=== PATIENT | female | born 1985 | race Caucasian/White ===

== ENCOUNTER → 2017-07-07 | Outpatient (CLI) | payer OTHER | END | disposition home or self-care (01) | LOC: C.PAPS 08:24 | PROVIDERS: ATTEND Obstetrics & Gynecology | DX: Z12.4 Encounter for screening for malignant neoplasm of cervix (principal) ==

== ENCOUNTER → 2017-07-07 | Outpatient (CLI) | payer OTHER ==
[2017-07-07 17:02] LABS: BASO % 0.1 %; BASO ABS # 0.01 K/uL (0-0.2); COMPLETE YES; EOS % 1.2 %; HEMATOCRIT 38.2 % (37-47); IG% 0.3 %; LYMPH % 17.4 %; LYMPH ABS # 1.26 K/uL (1.2-3.4); MEAN CELL VOLUME 81.3 fL (80-100); MEAN CORPUSCULAR HEMOGLOBIN 28.5 pg (25-34); MEAN CORPUSCULAR HGB CONC 35.1 g/dl (32-36); MEAN PLATELET VOLUME 10.3 fL (7.4-10.4); MONO % 5.5 %; NEUT % 75.5 %; PLATELET COUNT 179 K/uL (130-400); WHITE BLOOD COUNT 7.26 K/uL (4.8-10.8)
[2017-07-07 18:18] LABS: URINE APPEARANCE CLEAR (CLEAR); URINE BILIRUBIN NEG (NEG); URINE COLOR YELLOW; URINE NITRITE NEG (NEG); URINE SPECIFIC GRAVITY 1.023 (1.000-1.030); UROBILINOGEN NEG (NEG)
[2017-07-07 18:19] LABS: MANUAL MICROSCOPIC REQUIRED? NO; REVIEW REQ? NO
[2017-07-10 00:38] LABS: CHLAMYDIA TRACH RNA*** NOT DETECTED (NOT DETECTED); GC (NEIS GONORRHOEAE)RNA** NOT DETECTED (NOT DETECTED)
== END | disposition home or self-care (01) ==
LOC: C.LAB1850 16:10
PROVIDERS: ATTEND Obstetrics & Gynecology
DX: O99.281 Endocrine, nutritional and metabolic diseases complicating pregnancy, first trimester (principal)

== ENCOUNTER → 2017-08-04 | Outpatient (CLI) | payer OTHER ==
[2017-08-04 10:10] LABS: THYROID STIMULATING HORMONE 6.78 uIu/ml (0.300-4.500)
== END | disposition home or self-care (01) ==
LOC: C.LAB 07:04
PROVIDERS: ATTEND Family Medicine
DX: E03.9 Hypothyroidism, unspecified (principal)

== ENCOUNTER → 2017-08-27 | Outpatient (CLI) | payer OTHER ==
[2017-08-27 11:20] LABS: GTGD 50 Grams
== END | disposition home or self-care (01) ==
LOC: C.LAB1850 08:37
PROVIDERS: ATTEND Obstetrics & Gynecology
DX: Z34.02 Encounter for supervision of normal first pregnancy, second trimester (principal); Z3A.00 Weeks of gestation of pregnancy not specified

== ENCOUNTER → 2017-09-04 | Outpatient (CLI) | payer OTHER | END | disposition home or self-care (01) | LOC: C.LAB1850 07:59 | PROVIDERS: ATTEND Obstetrics & Gynecology | DX: O28.1 Abnormal biochemical finding on antenatal screening of mother (principal); Z3A.00 Weeks of gestation of pregnancy not specified ==

== ENCOUNTER → 2017-12-01 | Outpatient (CLI) | payer OTHER ==
[2017-12-01 09:42] LABS: HEMATOCRIT 34.9 % (37-47); HEMOGLOBIN 11.8 g/dL (12.0-16.0)
== END | disposition home or self-care (01) ==
LOC: C.LAB 08:29
PROVIDERS: ATTEND Obstetrics & Gynecology
DX: Z34.02 Encounter for supervision of normal first pregnancy, second trimester (principal)

== ENCOUNTER → 2017-12-02 | Outpatient (CLI) | payer OTHER | END | disposition home or self-care (01) | LOC: C.LABSPEC 17:46 | PROVIDERS: ATTEND Obstetrics & Gynecology | DX: Z34.02 Encounter for supervision of normal first pregnancy, second trimester (principal) ==

== ENCOUNTER → 2017-12-22 | Outpatient (CLI) | payer OTHER | END | disposition home or self-care (01) | LOC: C.LAB 07:18 | PROVIDERS: ATTEND Family Medicine | DX: E03.9 Hypothyroidism, unspecified (principal) ==

== ENCOUNTER 2018-01-18 19:21 | Outpatient (CLI) | payer OTHER | END 2018-01-18 19:55 | disposition home or self-care (01) | LOC: C.OPB 19:21 → C.LD 19:21 → C.OPB 19:55 | PROVIDERS: ATTEND Obstetrics & Gynecology | DX: O24.419 Gestational diabetes mellitus in pregnancy, unspecified control (principal); Z3A.00 Weeks of gestation of pregnancy not specified ==

== ENCOUNTER → 2018-01-21 | Outpatient (CLI) | payer OTHER | END | disposition home or self-care (01) | LOC: C.LABSPEC 11:23 | PROVIDERS: ATTEND Obstetrics & Gynecology | DX: O24.414 Gestational diabetes mellitus in pregnancy, insulin controlled (principal) ==

== ENCOUNTER 2018-02-01 19:22 | Outpatient (CLI) | payer OTHER ==
[~2018-02-01] VITALS: Ht 167.6 cm; Wt 115.2 kg
[2018-02-01] MEDS ORDERED: PRENTAB26 PO (19:50)
[2018-02-01] MEDS ORDERED: FAMO20TA11 PO (19:50)
[2018-02-01] MEDS ORDERED: INSU1INJ SC (19:50)
[2018-02-01] MEDS ORDERED: LEVO100T PO (19:50)
[2018-02-01] MEDS ORDERED: CLR10 PO (19:50)
[2018-02-01] MEDS ORDERED: HMLI7525 SC (19:50)
[2018-02-01 19:52] VITALS: Ht 167.6 cm; Wt 115.2 kg
== END 2018-02-01 20:00 ==
LOC: C.OPB 19:22 → C.LD 19:22 → C.OPB 20:00
PROVIDERS: ATTEND Obstetrics & Gynecology
DX: O24.419 Gestational diabetes mellitus in pregnancy, unspecified control (principal); Z3A.00 Weeks of gestation of pregnancy not specified

== ENCOUNTER 2018-02-08 19:40 | Outpatient (CLI) | payer OTHER ==
[~2018-02-08] VITALS: Ht 167.6 cm; Wt 115.0 kg
[~2018-02-08 19:40] MED LIST: CLR10 PO; FAMO20TA11 PO; HMLI7525 SC; INSU1INJ SC; LEVO100T PO; PRENTAB26 PO
[2018-02-08 20:00] VITALS: Ht 167.6 cm; Wt 115.0 kg
[2018-02-08] MEDS ORDERED: HMLIS (21:12)
[2018-02-09] MEDS ORDERED: INSHNI (11:23)
--- NOTE | 2018-02-11 11:07 | EDITING REQUIRED CODING QUERY ---
BURGER BULB Please clarify below whether a burger bulb was inserted on 02/08/18: (X ) Burger bulb was inserted BRIEF DESCRIPTION: Yes it was ( ) Burger bulb was not inserted ( ) Other, please clarify: Thank you for your assistance, Nika King - Marketing Recruiter
== END 2018-02-08 21:27 | disposition home or self-care (01) ==
LOC: C.LD 19:40 → C.OPB 19:40
PROVIDERS: ATTEND Obstetrics & Gynecology
DX: O34.43 Maternal care for other abnormalities of cervix, third trimester (principal); Z3A.00 Weeks of gestation of pregnancy not specified

== ENCOUNTER 2018-02-09 02:52 | Inpatient (IN) | payer OTHER ==
[~2018-02-09] VITALS: Ht 167.6 cm; Wt 115.0 kg
[~2018-02-09 02:52] MED LIST changes: -HMLI7525 SC; +HMLIS; -INSU1INJ SC
[2018-02-09] MEDS ORDERED: LACTATED RINGER'S 1000ML 1,000 ML IV PRN (08:13)
[2018-02-09] MEDS ORDERED: LACTATED RINGER'S 1000ML 500 ML IV PRN ×2 (08:14→14:03)
[2018-02-09] MEDS ORDERED: OXYTOCIN 30 UNITS/500ML NSS IV PRN (08:15)
[2018-02-09 08:29] VITALS: BMI 40.9
[2018-02-09 08:36] LABS: HEMATOCRIT 35.2 % (37-47); HEMOGLOBIN 12.2 g/dL (12.0-16.0); MEAN CELL VOLUME 89.6 fL (80-100); MEAN CORPUSCULAR HGB CONC 34.7 g/dl (32-36); MEAN PLATELET VOLUME 10.6 fL (7.4-10.4); PLATELET COUNT 118 K/uL (130-400); RED CELL DISTRIBUTION WIDTH CV 13.7 % (11.5-14.5); RED CELL DISTRIBUTION WIDTH SD 45.1 fL (36.4-46.3); WHITE BLOOD COUNT 8.97 K/uL (4.8-10.8)
[2018-02-09] MEDS: LACTATED RINGER'S 1000ML 1,000 ML IV SCH ×3 (08:49→23:55)
[2018-02-09 09:43] VITALS: Ht 167.6 cm; Wt 115.0 kg
[2018-02-09] MEDS ORDERED: INSHNI (11:23)
[2018-02-09] MEDS ORDERED: EpHEDrine SULFATE INJ 50 MG/ML AMP ONE (12:53)
[2018-02-09] MEDS ORDERED: BUPIVACAINE 0.25% 30 ML VIAL ONE (12:53)
[2018-02-09] MEDS ORDERED: FENTANYL 2MCG/ML ROPIV 1.25MG/ML 100ML BAG EPI ONE (12:54)
[2018-02-09] MEDS ORDERED: FENTANYL CITRATE INJ 50 MCG/1 ML 2 ML VIAL ONE ×2 (12:54→19:11)
[2018-02-09] MEDS ORDERED: DEXTROSE 50% 50 ML SYR IV PRN ×2 (13:30→13:45)
[2018-02-09] MEDS ORDERED: GLUCOSE 10 TABS/TUBE PO PRN (13:45)
[2018-02-09] MEDS ORDERED: GLUCOSE 40% GEL 15 GM TUBE PO PRN (13:45)
[2018-02-09] MEDS ORDERED: GLUCAGON FOR INJ 1 MG VIAL SQ PRN (13:45)
[2018-02-09] MEDS ORDERED: SODIUM CHLORIDE 0.9% 1000ML 1,000 ML IV SCH (14:00)
[2018-02-09] MEDS ORDERED: DEXTROSE 5% 1000ML 1,000 ML IV SCH (14:00)
[2018-02-09] MEDS ORDERED: NALOXONE HCL INJ 1 MG in SODIUM CHLORIDE 0.9% 1000ML 1,000 ML IV PRN (14:03)
[2018-02-09] MEDS ORDERED: DiphenhydrAMINE HCL 50 MG/ML VIAL IV PRN (14:15)
[2018-02-09] MEDS ORDERED: EpHEDrine SULFATE INJ 50 MG/ML AMP IV PRN (14:15)
[2018-02-09] MEDS ORDERED: NALOXONE HCL INJ 0.4 MG/1 ML VIAL/CARP IV PRN (14:15)
[2018-02-09] MEDS ORDERED: NALBUPHINE HCL INJ 10 MG/ML AMP IV PRN (14:15)
[2018-02-09] MEDS: INSULIN REGULAR 250 UNITS in SODIUM CHLORIDE 0.9% 250ML 250 ML IV SCH ×4 (17:13→23:07)
[2018-02-09] MEDS: FENTANYL 2MCG/ML ROPIV 1.25MG/ML 100ML BAG EPI PRN ×3 (18:09→19:34)
--- NOTE | 2018-02-09 19:53 | Anesthesiology Progress Note ---
Anesthesia Post Op Note Date & Time Feb 09, 2018 at 19:53 Vital Signs Pain Intensity: 5.0 Notes Mental Status: alert / awake / arousable, participated in evaluation Pt Amnestic to Procedure: Yes Nausea / Vomiting: adequately controlled Pain: adequately controlled Airway Patency, RR, SpO2: stable & adequate BP & HR: stable & adequate Hydration State: stable & adequate Anesthetic Complications: no major complications apparent ERROR MISENTRY DISREGARD ABOVE
[2018-02-09] MEDS ORDERED: CALCIUM CARBONATE 500 MG CHEWABLE PO PRN (20:15)
[2018-02-10] MEDS: INSULIN REGULAR 250 UNITS in SODIUM CHLORIDE 0.9% 250ML 250 ML IV SCH (00:03)
[2018-02-10] MEDS ORDERED: OXYTOCIN INJ 20 UNITS in LACTATED RINGER'S 1000ML 1,000 ML IV SCH (01:08)
[2018-02-10] MEDS ORDERED: LANOLIN OINT EXT PRN (01:15)
[2018-02-10] MEDS ORDERED: OXYCODONE/ACETAMINOPHEN 5-325 TAB PO PRN (01:15)
[2018-02-10] MEDS ORDERED: SUPERCREAM 0.870 % 15GM JAR EXT PRN (01:15)
[2018-02-10] MEDS ORDERED: HYDROCORTISONE ACETATE 25 MG SUPP PR PRN (01:15)
[2018-02-10] MEDS ORDERED: BENZOCAINE 20% AER SPR 82.5 GM CAN EXT PRN (01:15)
[2018-02-10] MEDS ORDERED: OXYTOCIN 30 UNITS/500ML NSS IV PRN (01:15)
[2018-02-10] MEDS ORDERED: ACETAMINOPHEN 325 MG TAB PO PRN (01:15)
[2018-02-10] MEDS ORDERED: MISOPROSTOL 200 MCG TAB PR ONE (01:15)
--- NOTE | 2018-02-10 01:21 | Anesthesia Procedure Note ---
Anesthesia Epidural Removal Nt Date & Time Feb 10, 2018 at 01:21 Vital Signs Pain Intensity: 5.0 Notes Mental Status: alert / awake / arousable, participated in evaluation Nausea / Vomiting: adequately controlled Pain: adequately controlled Airway Patency, RR, SpO2: stable & adequate BP & HR: stable & adequate Hydration State: stable & adequate Neuraxial Anesthesia: was administered, sensory block is resolving Anesthetic Complications: no major complications apparent, pt satisfied with anesthetic care Epidural: removed without complications, with tip intact
--- NOTE | 2018-02-10 01:23 | DELIVERY SUMMARY ---
DATE OF OPERATION: 02/10/2018 DELIVERY SUMMARY: The patient dilated to complete and pushed to deliver a viable male , Apgars 8 and 9 via over second degree perineal laceration. Of note, the cervix had previously been reduced prior to pushing at the anterior lip. The anterior shoulder was delivered with gentle downward traction and further maternal expulsive efforts. Then the pushing was paused and the nose and mouth were bulb suctioned and a loose nuchal cord x1 was reduced. With further maternal expulsive efforts, the reminder of the body was delivered. The infant was not vigorous immediately after and therefore the cord was clamped and the infant was placed on the maternal abdomen for drying and stimulation. The infant almost immediately began to cry. The cord was then doubly clamped and cut. The placenta was delivered spontaneously and intact. A 3-vessel cord noted. Hemostasis was achieved with dilute Pitocin and bimanual massage. Tissue at the introitus was concerning for possible cervical laceration, however on thorough inspection twice the cervix was circumferentially followed and the area of anterior swollen cervix was what was protruding. It was reapproximated to the main part of the cervix with an interrupted suture of 3-0 chromic. Prior to that the bleeding had been reassessed and then decision was made to place 800 mcg of rectal Cytotec to aid in uterine tone. Second degree perineal laceration was repaired in the usual fashion after additional 1% local lidocaine had been administered. The sulci were intact. Again, the cervix was intact. EBL was 400 mL. Mother and baby stable in recovery. I attest to the content of the Intraoperative Record and any orders documented therein. Any exception s are noted below.
[2018-02-10] MEDS: IBUPROFEN 600 MG TAB PO PRN ×2 (01:41→15:49)
[2018-02-10 05:45] LABS: CALCIUM 8.6 mg/dl (8.5-10.1); CREATININE 0.92 mg/dl (0.60-1.20); POTASSIUM 3.5 mmol/L (3.5-5.1)
[2018-02-10 05:48] LABS: TOTAL PROTEIN 5.6 gm/dl (6.4-8.2)
[2018-02-10 05:54] LABS: HEMATOCRIT 34.7 % (37-47); HEMOGLOBIN 11.6 g/dL (12.0-16.0); MEAN CELL VOLUME 89.9 fL (80-100); MEAN CORPUSCULAR HEMOGLOBIN 30.1 pg (25-34); MEAN CORPUSCULAR HGB CONC 33.4 g/dl (32-36); MEAN PLATELET VOLUME 11.2 fL (7.4-10.4); PLATELET COUNT 148 K/uL (130-400); RED CELL DISTRIBUTION WIDTH CV 13.9 % (11.5-14.5); RED CELL DISTRIBUTION WIDTH SD 45.2 fL (36.4-46.3)
[2018-02-10 07:30] VITALS: BP 149/92; PULSE 99; TEMP 37.1
[2018-02-10] MEDS: LEVOTHYROXINE 100 MCG TAB PO SCH (08:10)
[2018-02-10] MEDS: LORATADINE 10 MG TAB PO SCH (08:12)
[2018-02-10] MEDS: DOCUSATE SODIUM 100 MG CAP PO SCH ×2 (08:12→20:13)
[2018-02-10] MEDS: FAMOTIDINE 20 MG TAB PO SCH (08:12)
[2018-02-10 12:10] VITALS: BP 136/86; PULSE 103; TEMP 36.7
[2018-02-10 16:00] VITALS: BP 159/86; PULSE 100; TEMP 36.8
[2018-02-10 23:15] VITALS: BP 128/83; PULSE 94; TEMP 36.7; O2SAT 96
[2018-02-11] MEDS: IBUPROFEN 600 MG TAB PO PRN ×2 (00:16→06:27)
[2018-02-11] MEDS: LEVOTHYROXINE 100 MCG TAB PO SCH (07:33)
[2018-02-11 07:37] VITALS: BP 121/76; PULSE 82; TEMP 36.6; O2SAT 98
--- NOTE | 2018-02-11 07:41 | Progress Note ---
Subjective Feb 11, 2018. Subjective conversation w/ patient, physical exam Ambulation: ambulating normally Voiding: no voiding problems Passing Gas: Yes Diet Tolerance: Regular Diet Lochia: Moderate Feeding Type: Breast Feeding Pain: minimal, well controlled Comment: No acute events overnight Review of Systems Constitutional: No fever, No chills Respiratory: No cough, No shortness of breath Cardiac: + edema, No chest pain Abdomen: No nausea, No vomiting no headaches or calf pain Objective Vital Signs Date Time Temp Pulse Resp B/P (MAP) Pulse Ox O2 Delivery O2 Flow Rate FiO2 02/10/18 23:15 36.7 94 20 128/83 (98) 96 Room Air 02/10/18 23:15 96 Room Air 02/10/18 16:00 Room Air 02/10/18 16:00 36.8 100 24 159/86 (110) Room Air 02/10/18 12:10 36.7 103 20 136/86 (103) Room Air Physical Exam General Appearance: WELL-APPEARING, NO APPARENT DISTRESS Respiratory/Chest: chest non-tender, lungs clear, normal breath sounds Cardiovascular: regular rate, rhythm, no murmur Abdomen: normal bowel sounds, non tender, soft Fundus: Firm, Non-Tender, Relation to Umbilicus (at umbilicus) Extremities: normal range of motion, non-tender, normal inspection, no calf tenderness, + pedal edema (2+ bilat) Laboratory Results Date Time Temp Pulse Resp B/P (MAP) Pulse Ox O2 Delivery O2 Flow Rate FiO2 02/10/18 23:15 36.7 94 20 128/83 (98) 96 Room Air 02/10/18 23:15 96 Room Air 02/10/18 16:00 Room Air 02/10/18 16:00 36.8 100 24 159/86 (110) Room Air 02/10/18 12:10 36.7 103 20 136/86 (103) Room Air Medications Current Inpatient Medications Medications (Trade) Dose Ordered Sig/Bhavesh Route Start Time Stop Time Status Last Admin Dose Admin Famotidine (Pepcid Tab) 20 mg DAILY PO 02/10/18 08:00 03/12/18 07:59 02/10/18 08:12 20 MG Levothyroxine Sodium (Synthroid Tab) 100 mcg DAILYBB PO 02/10/18 07:30 03/12/18 07:29 02/11/18 07:33 100 MCG Loratadine (Claritin Tab) 10 mg DAILY PO 02/10/18 08:00 03/12/18 07:59 02/10/18 08:12 10 MG Oxytocin (Pitocin IV) 30 units UD PRN IV 02/10/18 01:15 03/12/18 01:14 02/10/18 01:47 30 UNITS Benzocaine (Dermoplast Aero Spr) 1 appln PRN PRN EXT 02/10/18 01:15 03/12/18 01:14 02/10/18 08:40 82.5 APPLN Cocaine HCl (Supercream 0.870% Cr) BID PRN EXT 02/10/18 01:15 02/24/18 01:14 Hydrocortisone Acetate (Anusol Hc Supp) 25 mg BID PRN NV 02/10/18 01:15 03/12/18 01:14 Lanolin (Lanolin Oint) PRN PRN EXT 02/10/18 01:15 03/12/18 01:14 Ibuprofen (Motrin Tab) 600 mg Q4H PRN PO 02/10/18 01:15 03/12/18 01:14 02/11/18 06:27 600 MG Acetaminophen (Tylenol Tab) 650 mg Q6H PRN PO 02/10/18 01:15 03/12/18 01:14 Oxycodone/ Acetaminophen (Percocet 5-325mg Tab) 1 tab Q4H PRN PO 02/10/18 01:15 02/24/18 01:14 Docusate Sodium (coLACE CAP) 100 mg BID PO 02/10/18 08:00 03/12/18 07:59 02/10/18 20:13 100 MG Diphtheria/ Pertussis/Tetanus Vacc (Adacel Inj) 0.5 ml ONCE ONCE IM. 02/11/18 09:00 02/11/18 09:01 Assessment and Plan Post- Day#: 1 Continue Routine Care: 32yo F PPD 1 s/p via induction for gestational DM Sugars have been normal since delivery Borderline HTN; pt to be seen for BP check in office on Thursday 02/15 Mother/baby Rh neg Home today: 6 week f/u with Dr. Santana, BP check 02/15 Routine care: ambulation/breast feeding/pain control Discharge instructions reviewed Resident Physician Supervision Note: I interviewed and examined the patient. Discussed with Dr. Quinones and agree with findings and plan as documented in the note. Any exceptions or clarifications are listed here: Patient doing well. BP are borderline and were toward the end of labor. no s/s pet. Plan rtc on Thursday for bp check. s/s of pet reviewed. Documented By: Fabiola Orellana Resident Tracking Resident Involvement: Resident Care Provided Care Provided: OB Delivery
--- NOTE | 2018-02-11 07:43 | Discharge Instructions ---
Discharge Instructions Date of Service Feb 11, 2018. Admission Reason for Admission: Induction Discharge Discharge Diagnosis / Problem: s/p Discharge Goals Goal(s): Routine recovery after delivery Medications Continue Dispensed Medications: supercream, dermaplast, tucks, lansinoh Activity Recommendations Activity Limitations: per Instructions/Follow-up section . Instructions / Follow-Up Instructions / Follow-Up ACTIVITY RECOMMENDATIONS: * Gradual return to full activity over the next 2-3 weeks. * No lifting - nothing heavier than baby over the next 2-3 weeks. * Do not engage in vigorous exercise, sexual activity or sports until cleared by your physician. * Do not drive or operate any motorized equipment until cleared by your physician. * You may shower/bathe daily. MEDICATIONS: For discomfort or pain, you may use Acetaminophen (Tylenol), Ibuprofen (Advil), or Naproxen (Aleve) following the package directions. For constipation you may use Colace following the package directions. BREAST CARE: If you are not breast feeding: * Wear a supportive bra 24 hours a day for one to two weeks. * Avoid stimulating your breasts and nipples as much as possible during the first few weeks after delivery. * When taking a shower, have the warm water hit your back, not breasts. * When your breasts feel full, apply ice packs. Usually three to four times a day helps ease the discomfort. * Take a mild pain medication (Tylenol / Motrin) when you are uncomfortable. If breast feeding: * Use breast milk to lubricate nipples. Lansinoh cream may be used for sore nipples. You do not need to remove cream prior to breast feeding. If using a different brand of cream, check the label for directions regarding removal of cream prior to nursing. * Wear a supportive bra. * If having problems with breasts or breast feeding, call a [employer] consultant or your health care provider. EPISIOTOMY CARE: After delivery, if you have an episiotomy (stitches), the following steps will ease discomfort and aid healing. * For the first 24 hours after delivery, place ice packs next to your episiotomy to help reduce swelling. * After the first 24 hour-period, sitz baths, either portable or in the tub, are suggested. A shower with a shower arm sprayed over the episiotomy may be comforting. * Dominique care should be done after each voiding and bowel movement. Squirt warm water from a plastic bottle over the perineum (region of the body between the anus and urinary opening) and pat dry. * Use Dermoplast to ease discomfort. Shake container. Grant directly over the episiotomy. Place a Tucks on a clean sanitary pad next to your episiotomy. SPECIAL CARE INSTRUCTIONS: When you are discharged from the hospital, it is important for you to follow the instructions listed below: * During the first week at home, you should be able to care for yourself and your baby. In addition, the usual light household activities are encouraged. * Limit your activities to the way you feel. Do not try to clean the house or move furniture. Be sensible. * If you actively engage in sports and have done so up until the time of your delivery, you may resume these activities as soon as you feel able. This may take up to one month or even longer. Use good judgment. * Continue to take your vitamins for at least six weeks after the of your baby. * Your diet need not be limited unless you were on a special diet before your delivery. Breast-feeding mothers need around 2500 calories per day and at least 64-80 ounces of fluid per day (8 to 10 glasses). * You should eat foods from the four major food groups. Crash diets or fad diets are to be avoided. Eating lean meats, fresh fruits and vegetables, low-fat dairy products, high fiber foods and a regular exercise program, will help you get back to your pre- weight without putting your health at risk. * Constipation is sometimes a problem after delivery. Take a mild laxative as needed. If breast feeding, Milk of Magnesia is acceptable to use. You may use a suppository or Fleets enema if no episiotomy. * A daily shower or tub bath is suggested. Be sure to thoroughly and gently dry the perineum. * A bloody vaginal discharge will usually continue until around four weeks post . A small amount of bleeding may continue for as long as six weeks. Vaginal discharge changes from the bright red bleeding after delivery to pink then brownish and finally yellowish-pink before becoming white and disappearing. * Bleeding may increase with activity. Your first period may come in 4-8 weeks. If you are breast feeding, your period may be delayed even longer. * [place] (sex) can begin whenever both you and your partner feel comfortable and do not have any form of genital infection. It is recommended that you wait at least six weeks for internal and external healing to occur. If you have questions, please talk to your health care practitioner. A condom should be used to prevent infection and . * Foreplay, gentle intercourse and lubrication is very important the first several times to prevent pain. A water-based lubricant such as K-Y jelly or Astroglide may be used. * If you have RH negative blood and your baby is RH positive, you will receive RHOGAM by injection prior to discharge. The nurse will give you a card to keep with you that has the date and place that you received RHOGAM after delivery. * During your care, you had a Rubella screen done to check for the presence of rubella antibodies in your blood. If your test was negative, you will receive a Rubella vaccine prior to discharge. This vaccine may cause a fever, soreness at the injection site and flu-like symptoms. If these symptoms persist, notify your health care practitioner. is not advised for one month after a Rubella vaccine. * Verbalizes understanding of car seat law as reviewed with patient nursing. * Car Seat hand-out given and reviewed with patient by nursing. * Shaken baby information reviewed with patient by nursing. Call you doctor if: * Heavy bleeding (saturating several pads an hour) or passing clots the size of your fist. * A fever >101 degrees F (38.3 degrees C) on two occasions four hours apart and /or chills. * Unusual pain in the pelvic or vaginal areas. * "Baby Blues" lasting longer than two weeks. If you have any questions or concerns, call your health care practitioner at . FOLLOW UP VISIT: * Please call the office at to schedule a [address] Santana. It is important you keep this appointment. It is important for you to make arrangements for either yearly or twice yearly check-ups thereafter. * Please call office for appointment on 02/15 (Thursday) for blood pressure check. Current Hospital Diet Patient's current hospital diet: Regular OB Diet Discharge Diet Recommended Diet: Regular OB Diet Pending Studies Studies pending at discharge: no Medical Emergencies . Who to Call and When: Medical Emergencies: If at any time you feel your situation is an emergency, please call 911 immediately. . Non-Emergent Contact Non-Emergency issues call your: Alignment Specialist . . "Provider Documentation" section prepared by Komal Quinones. .
[2018-02-11] MEDS: LORATADINE 10 MG TAB PO SCH (08:36)
[2018-02-11] MEDS: FAMOTIDINE 20 MG TAB PO SCH (08:36)
[2018-02-11] MEDS: DOCUSATE SODIUM 100 MG CAP PO SCH (08:36)
[2018-02-11] MEDS ORDERED: DIPHTHERIA/TETANUS/PERTUSSIS 0.5 ML SYR/VIAL IM. ONE (09:00)
[2018-02-11 09:57] VITALS: O2SAT 98
[2018-02-11 13:22] VITALS: BP_DIAS 76; PULSE 82; TEMP 36.6
== END 2018-02-11 15:25 | disposition home or self-care (01) | DRG 775 ==
LOC: C.LD 07:52 → C.OBG 02-10 04:36
PROVIDERS: ADMIT Obstetrics & Gynecology; ATTEND Obstetrics & Gynecology
PROC: 3E033VJ Introduction of Other Hormone into Peripheral Vein, Percutaneous Approach (ICD-10-PCS; 2018-02-09)
PROC: 0KQM0ZZ Repair Perineum Muscle, Open Approach (ICD-10-PCS; principal; 2018-02-10)
PROC: 10E0XZZ Delivery of Products of Conception, External Approach (ICD-10-PCS; principal; 2018-02-10)
DX: O24.414 Gestational diabetes mellitus in pregnancy, insulin controlled (principal); O36.0930 Maternal care for other rhesus isoimmunization, third trimester, not applicable or unspecified; O70.1 Second degree perineal laceration during delivery; O69.81X0 Labor and delivery complicated by cord around neck, without compression, not applicable or unspecified; O99.284 Endocrine, nutritional and metabolic diseases complicating childbirth; E03.9 Hypothyroidism, unspecified; R03.0 Elevated blood-pressure reading, without diagnosis of hypertension; Z3A.39 39 weeks gestation of pregnancy; Z37.0 Single live birth